=== PATIENT | male | born 1975 | race Caucasian/White ===

== ENCOUNTER → 2018-10-16 | Outpatient (CLI) | payer OTHER ==
[~2018-10-16] MED LIST: GADOBENATE 529MG/1ML 15ML VIAL IVP ONE; GEM600 PO; HYD2 PO; HYDR2TAB74 PO; HYOS0.1287 PO; MOM PO; PRA20 PO; PROM-110 PO; TRA50 PO; [UNRECOGNIZED DRUG - OTHER]
--- NOTE | 2018-10-16 16:08 | RADIOLOGY IMAGING REPORT ---
FACILITY: [facility] PATIENT NAME: Macho Castellon : 1975 MR: [id number] V: [id number] EXAM DATE: ORDERING PHYSICIAN: TAWANNA WALTON TECHNOLOGIST: Location: Patient: Macho Castellon : 1975 Visit/Account:[id number] Date of Sevice: 10/16/2018 EXAMINATION: MRI Brain without intravenous contrast MRI Brain with intravenous contrast, detailed IACs HISTORY: Right-sided hearing loss. COMPARISON: None available. TECHNIQUE: Multi-planar, multi-sequence brain MRI was performed before and after IV gadolinium. Thin section imaging was performed in the axial and coronal planes centered on the IACs. CONTRAST: 15 mL of IV MultiHance FINDINGS: IAC detailed study: Brain stem: Negative. Cerebellopontine angles: Negative. IACs / CN VII and VIII: Negative. Inner ear: Negative. Middle ear: Negative. Mastoids / petrous apices: Negative. Rest of brain: Asymmetric left-sided cerebellar volume loss. Rightward nasal septal deviation. IMPRESSION: 1. Asymmetric left cerebellar volume loss. 2. Otherwise normal IAC protocol MRI without and with IV contrast. Report Dictated By: aMcho Oswald MD at 10/16/2018 3:58 PM Report E-Signed By: Macho Oswald MD at 10/16/2018 4:04 PM [id number]
== END ==
LOC: MRI 00:22
PROVIDERS: ATTEND Otolaryngology
DX: G31.9 Degenerative disease of nervous system, unspecified (principal); J34.2 Deviated nasal septum
CPT/HCPCS: 70553; A9577